=== PATIENT | female | born 1935 | race Caucasian/White ===

== ENCOUNTER 2017-08-17 11:11 | Outpatient (CLI) | payer MEDICARE | END 2017-08-17 11:12 | disposition home or self-care (01) | LOC: BICMAMMO 11:11 | PROVIDERS: ATTEND Obstetrics & Gynecology | DX: Z12.31 Encounter for screening mammogram for malignant neoplasm of breast (principal); R92.1 Mammographic calcification found on diagnostic imaging of breast; Z80.3 Family history of malignant neoplasm of breast | CPT/HCPCS: 77063; 77067 ==

== ENCOUNTER 2017-11-04 16:23 | Outpatient (CLI) | payer MEDICARE | END 2017-11-04 16:24 | disposition home or self-care (01) | LOC: BICRAD 16:23 | PROVIDERS: ATTEND Internal Medicine | DX: R06.02 Shortness of breath (principal) | CPT/HCPCS: 71046 ==

== ENCOUNTER 2018-04-13 12:28 | Observation (INO) | payer MEDICARE ==
[~2018-04-13 12:28] MED LIST: ISOVUE-370 76%-LOCM 1 ML ONE
[2018-04-13] MEDS ORDERED: Aspirin Chewable 81 MG TAB ONE (14:03)
[2018-04-13 14:33] LABS: #Eosinphils 0.1 thou/uL (0.0-0.7); #Lymphocytes 1.4 thou/uL (1.20-3.40); #Monocytes 0.5 thou/uL (0.11-0.59); #Neutrophils 4.8 thou/uL (1.40-6.50); %Basophils 0.5 % (0.0-1.0); %Eosinophils 1.4 % (0.0-10.0); %Monocytes 7.7 % (0.0-10.0); %Neutrophils 70.3 % (42.0-75.0); Hemoglobin 15.3 g/dL (12.0-16.0); Mean Corpuscular HGB CONC 32.7 g/dL (32.0-36.0); Mean Corpuscular Hemoglobin 33.7 pg (27.0-31.0); Mean Platelet Volume 6.8 fL (7.4-10.4); Platelet Count 159 thou/uL (130-400); RBC Distribution Width 11.6 % (11.5-14.5); Red Blood Cell (RBC) Count 4.53 mill/uL (4.20-5.40); White Blood Cell (WBC) Count 6.8 thou/uL (4.8-10.8)
[2018-04-13 15:23] LABS: ALT (SGPT) 26 U/L (8-55); AST (SGOT) 37 U/L (5-34); Albumin 4.5 g/dL (3.4-4.8); Alkaline Phosphatase 113 U/L (40-150); Anion Gap 17 mmol/L (10-20); BUN (Urea Nitrogen) 15 mg/dL (9.8-20.1); Bilirubin, Total 0.8 mg/dL (0.2-1.2); Calc. Creatinine Clearance 0 mL/min (70-130); Calcium 10.4 mg/dL (7.8-10.44); Carbon Dioxide 25 mmol/L (23-31); Chloride 104 mmol/L (98-107); Estimated GFR-MDRD 72; Globulin 2.8 g/dL (2.4-3.5); Glucose 111 mg/dL (83-110); Potassium 4.8 mmol/L (3.5-5.1); Protein, Total 7.3 g/dL (6.0-8.3); Sodium 141 mmol/L (136-145)
--- NOTE | 2018-04-13 16:08 | CT ---
CT ARTERIOGRAM HEAD WITH IV CONTRAST AND 3D MIP IMAGING CT BRAIN WITH AND WITHOUT IV CONTRAST: Date: 04/13/18 HISTORY: Falls. Altered mental status. COMPARISON: 03/15/15. FINDINGS: No evidence of acute intracranial hemorrhage or infarct. Projecting superiorly and medially from the intracranial apex of the left orbit is an oval, densely calcified, 1.1 cm flat lesion. Projecting sup eriorly from it is a subtle blush of density with the appearance of contrast enhancement extending to the underlying brain parenchyma. It measures 0.8 cm at its base. No other abnormal areas of intracranial contrast enhancement. No other mass effect. Ventricles are un remarkable. Calcification within the carotid siphons at the brain base. No evidence of thrombosis, em bolus, or aneurysm. [place] is intact. IMPRESSION: 1. Calcified lesion at the left frontal fossa floor has the appearance of a densely calcified mening ioma, possibly with an adjacent noncalcified extra-axial enhancing component. This is likely not the cause of the patient's current symptoms. Please consider nonemergent MRI brain, with and without Gado linium contrast, for better characterization. 2. Atherosclerosis. POS: [facility]
[2018-04-13] MEDS ORDERED: HYDROcodone/Acetaminophen 5/325 mg Tablet PO PRN (17:46)
[2018-04-13] MEDS ORDERED: Acetaminophen 325 MG TAB PO PRN (17:46)
[2018-04-13 20:55] VITALS: BMI 26.9
[2018-04-13] MEDS: Famotidine 20 MG TAB PO SCH (21:57)
--- NOTE | 2018-04-14 04:43 | HP ---
PRIMARY CARE PHYSICIAN: Cary Jara MD CHIEF COMPLAINT: Falls, increased ataxia, dysarthria. HISTORY OF PRESENT ILLNESS: Ms. Morgan is an 82-year-old female who reports to the emergency room today for increased ataxia, dysarthria that lasted several hours. reports that over last night she was sitting, bent over to grab something off the floor, fell out of the chair onto her elbow, was able to get up, went to bed. This morning, has been noticed that she was not talking as clearly as she normally does; her ataxia was also worse. 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 On exam, reports that it is better than it was this morning. CT of the brain and neck with and without contrast was performed in the emergency room with the impression of a calcified lesion of the left frontal fossa floor, has the appearance of a densely calcified meningioma, possibly with an adjacent noncalcified extra-axial enhancing component. This is likely not the cause of the patient's current symptoms. Please consider non-emergent MRI Atherosclerosis; based on symptoms and history, the patient was admitted to the stroke unit for further management. 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 PAST SURGICAL HISTORY: Includes hysterectomy. PSYCHIATRIC HISTORY: None. SOCIAL HISTORY: Denies alcohol or drug history. Denies smoking history. Lives at home with her family. FAMILY HISTORY: Noncontributory. REVIEW OF SYSTEMS: CONSTITUTIONAL: Denies chills or fever. Reported some increased weakness this morning, increased ataxia which was transient. EYES: Denies any eye pain, any vision changes. ENT: Denies any rhinorrhea or sore throat. CARDIOVASCULAR: Denies any chest pain or palpitations. RESPIRATORY: Denies any shortness of breath or cough. GASTROINTESTINAL: Denies any abdominal pain, nausea, vomiting, diarrhea, constipation. GENITOURINARY: Denies any dysuria or hematuria. MUSCULOSKELETAL: Reports fall. Denies injury. Denies back pain. SKIN: Denies rashes or skin changes. NEUROLOGIC: Some slurred speech, increased ataxia, some dysarthria, which have resolved. Denies paresthesias. Denies headache. Denies paralysis. PHYSICAL EXAMINATION: VITAL SIGNS: Blood pressure 157/89, pulse is 82, respirations 18, temperature 98.7, O2 sats are 95% on room air. CONSTITUTIONAL: The patient appears pain-free, nontoxic, is oriented to person, place, and time. HEENT: Head is atraumatic and normocephalic. Eyes, pupils are equally round and reactive to light. Eyelids are normal to inspection. ENT; pharynx exam is normal. Mouth exam is normal. Trachea is midline. NECK: Normal range of motion. No tenderness. RESPIRATORY: Chest; breath sounds are clear. No findings of respiratory distress. CARDIOVASCULAR: Irregularly irregular. No abnormal heart sounds are heard. BACK: Normal inspection. Normal range of motion. EXTREMITIES: Upper extremities; normal range of motion. Does have some range of motion issue with the right shoulder, which she reports is chronic. Sensation is intact. Radial pulses are equal bilaterally. Lower extremity; normal range of motion. Motor strength is normal. Sensation intact. Pedal pulses are normal bilaterally. NEUROLOGIC: NIH is zero. The patient is alert and oriented to person, place, and time. No focal motor or sensory deficits are noted. SKIN: Warm, dry, normal in color. IMAGING DATA: EKG in the emergency room shows atrial fibrillation with controlled ventricular response. Nonspecific abnormality with ST, nonspecific T-wave changes. PERTINENT LABORATORY DATA: White blood cell count is 6.8, hemoglobin 15.3, hematocrit 46.6, platelet count is 159. Sodium 141, potassium 4.8, chloride 104, gap is 17, BUN is 15, creatinine is 0.77, estimated GFR 72, glucose 111, calcium 10.4, AST is 37, ALT 26. First troponin 0.010. Other liver enzymes are unremarkable. ASSESSMENT AND PLAN: 1. Increased dysarthria and ataxia, which have resolved, likely possible transient ischemic attack. We will obtain an MRI in the morning, echocardiogram. We will ask the stroke team to evaluate. 2. Hyperlipidemia. We will draw lipids in the morning. Continue home medications. 3. Hypertension. We will monitor vital signs. Restart home medications. 4. Hospital course will be dependent on clinical findings. Job ID: [id number]
[2018-04-14 05:12] LABS: #Eosinphils 0.1 thou/uL (0.0-0.7); #Lymphocytes 1.7 thou/uL (1.20-3.40); #Monocytes 0.5 thou/uL (0.11-0.59); #Neutrophils 2.4 thou/uL (1.40-6.50); %Lymphocytes 34.9 % (21.0-51.0); %Monocytes 11.1 % (0.0-10.0); Hemoglobin 14.4 g/dL (12.0-16.0); Mean Corpuscular HGB CONC 33.2 g/dL (32.0-36.0); Mean Platelet Volume 6.6 fL (7.4-10.4); Platelet Count 147 thou/uL (130-400); RBC Distribution Width 11.6 % (11.5-14.5); Red Blood Cell (RBC) Count 4.24 mill/uL (4.20-5.40); White Blood Cell (WBC) Count 4.9 thou/uL (4.8-10.8)
[2018-04-14 05:15] LABS: INR-International Normal Ratio 1.1; PTT 29.3 SEC (22.9-36.1); Prothrombin Time 13.8 SEC (12.0-14.7)
[2018-04-14 06:00] LABS: ALT (SGPT) 19 U/L (8-55); AST (SGOT) 21 U/L (5-34); Alkaline Phosphatase 91 U/L (40-150); Anion Gap 14 mmol/L (10-20); BUN (Urea Nitrogen) 13 mg/dL (9.8-20.1); Calc. Creatinine Clearance 67 mL/min (70-130); Calcium 10.2 mg/dL (7.8-10.44); Carbon Dioxide 24 mmol/L (23-31); Cardiac Risk 2.5 (Less than 4.5); Chloride 105 mmol/L (98-107); Cholesterol 157 mg/dl (< 200 Desired); Estimated GFR-MDRD 77; Globulin 2.5 g/dL (2.4-3.5); Glucose 100 mg/dL (83-110); HDL Cholesterol 63 mg/dL (>60 Neg Risk); LDL Cholesterol, Calculated 76 mg/dL; Potassium 3.5 mmol/L (3.5-5.1); Protein, Total 6.5 g/dL (6.0-8.3); Sodium 139 mmol/L (136-145); Triglycerides 88 mg/dL (Less than 150)
[2018-04-14] MEDS ORDERED: Ondansetron ODT 4 MG TAB PO PRN (07:30)
[2018-04-14] MEDS ORDERED: Loperamide HCl 2 MG CAP PO PRN (07:30)
[2018-04-14] MEDS ORDERED: Cepastat Lozenges 1 LOZ PO PRN (07:30)
[2018-04-14] MEDS ORDERED: Loratadine 10 MG TAB PO PRN (07:30)
[2018-04-14] MEDS ORDERED: Zolpidem Tartrate 5 MG TAB PO PRN (07:30)
[2018-04-14] MEDS ORDERED: Acetaminophen 500 MG TAB PO PRN (07:30)
[2018-04-14] MEDS ORDERED: Ondansetron PF 4 MG/2 ML Vial IVP PRN (07:30)
[2018-04-14] MEDS ORDERED: Eucerin (Mineral Oil/Petrolatum,White) 30 gm Jar TOP PRN (07:30)
[2018-04-14] MEDS ORDERED: Artificial Tears 18 DROP/0.9 ML EA EYE PRN (07:30)
[2018-04-14] MEDS ORDERED: Sodium Chloride 0.65% Nasal 44 ML BOT EA NARE PRN (07:30)
[2018-04-14] MEDS ORDERED: Calcium Carbonate 500 MG ChewTAB PO PRN (07:30)
[2018-04-14] MEDS ORDERED: Bisacodyl 10 MG SUPP PR PRN (07:30)
[2018-04-14] MEDS ORDERED: Senokot S 8.6-50 MG TAB PO PRN (07:30)
[2018-04-14] MEDS ORDERED: Diabetic Tussin 200 MG/10 ML UDCUP PO PRN (07:30)
[2018-04-14] MEDS ORDERED: hydrALAZINE 20 MG/ML VIAL SLOW IVP PRN (07:30)
[2018-04-14] MEDS ORDERED: Lorazepam 2 MG/ML VIAL SLOW IVP SCH (08:15)
[2018-04-14] MEDS: Famotidine 20 MG TAB PO SCH (08:57)
[2018-04-14] MEDS ORDERED: Mupirocin 2% Ointment 22 GM Tube TOP SCH ×2 (09:00)
[2018-04-14] MEDS ORDERED: Simvastatin 20 MG TAB PO SCH (09:00)
--- NOTE | 2018-04-14 09:50 | MRI ---
MRI BRAIN WITHOUT CONTRAST: HISTORY: Altered mental status. FINDINGS: Correlation is made with the CT scan and CTA of previous day. There are small foci of restricted diffusion in the right parietal and temporal lobes consistent with acute infarctions. Multiple foci of T2 prolongation in the periventricular white matter are consist ent with chronic small vessel ischemic disease. No hemorrhage, midline shift, or abnormal extraaxial fluid collections are seen. A 1 cm extradural mass in the left inferior frontal region is likely a meningioma (noted on yesterday's study). IMPRESSION: 1. Small acute lacunar infarctions in the right cerebral hemisphere. 2. Probable meningioma. Exam should be repeated with IV Gadolinium. POS: [facility]
--- NOTE | 2018-04-14 11:58 | PDOC.PN ---
- Subjective Encounter Start Date: 04/14/18 Encounter Start Time: 07:40 -: old records requested/rev Patient seen and examined. No new complaints. No overnight events - Objective Resuscitation Status - Order Detail: 04/13/18 17:46 Resuscitation Status Routine Co-Sign Provider: Resuscitation Status: FULL: Full Resuscitation MAR Reviewed: Yes Vital Signs & Weight: Vital Signs (12 hours) Temp Pulse Resp BP Pulse Ox 04/14/18 11:41 97.4 F L 80 16 115/64 95 04/14/18 07:46 98.1 F 88 16 163/83 H 97 04/14/18 04:00 97.9 F 77 18 128/69 95 04/14/18 00:00 98.1 F 73 18 157/86 H 95 Weight Weight 157 lb I&O: 04/13/18 04/14/18 04/15/18 06:59 06:59 06:59 Intake Total 100 Balance 100 Result Diagrams: 04/14/18 04:53 04/14/18 04:53 Radiology Reviewed by me: Yes (MRI showed lacunar cva) EKG Reviewed by me: Yes (nsr) Phys Exam - Physical Examination Constitutional: NAD HEENT: PERRLA, moist MMs, sclera anicteric Neck: no JVD, supple Respiratory: no wheezing, no rales, no rhonchi Cardiovascular: RRR, no significant murmur, no rub Gastrointestinal: soft, non-tender, no distention, positive bowel sounds Musculoskeletal: no edema, pulses present Neurological: non-focal, normal sensation, moves all 4 limbs Lymphatic: no nodes Psychiatric: normal affect, A&O x 3 Skin: no rash, normal turgor Dx/Plan (1) Ataxia Code(s): R27.0 - ATAXIA, UNSPECIFIED Status: Acute (2) Dyslipidemia Code(s): E78.5 - HYPERLIPIDEMIA, UNSPECIFIED Status: Chronic (3) Hypertension Code(s): I10 - ESSENTIAL (PRIMARY) HYPERTENSION Status: Chronic (4) Macrocytosis Code(s): D75.89 - OTHER SPECIFIED DISEASES OF BLOOD AND BLOOD-FORMING ORGANS Status: Chronic - Plan cont current plan of care * medication reviewed as below * symptomatic treatment * echo pending * neuro consult * will discharge later today * discussed with . Review of Systems - Review of Systems ENT: negative: Ear Pain, Ear Discharge, Nose Pain, Nose Discharge, Nose Congestion, Mouth Pain, Mouth Swelling, Throat Pain, Throat Swelling, Other Respiratory: negative: Cough, Dry, Shortness of Breath, Hemoptysis, SOB with Excertion, Pleuritic Pain, Sputum, Wheezing Cardiovascular: negative: chest pain, palpitations, orthopnea, paroxysmal nocturnal dyspnea, edema, light headedness, other Gastrointestinal: negative: Nausea, Vomiting, Abdominal Pain, Diarrhea, Constipation, Melena, Hematochezia, Other Genitourinary: negative: Dysuria, Frequency, Incontinence, Hematuria, Retention , Other Musculoskeletal: negative: Neck Pain, Shoulder Pain, Arm Pain, Back Pain, Hand Pain, Leg Pain, Foot Pain, Other Skin: negative: Rash, Lesions, Petey, Bruising, Other - Medications/Allergies Allergies/Adverse Reactions: Allergies Allergy/AdvReac Type Severity Reaction Status Date / Time No Known Drug Allergies Allergy Verified 04/13/18 21:08 Medications: Current Medications Acetaminophen (Tylenol) 1,000 mg PO Q6H PRN PRN Reason: Mild Pain (1-3) Hydrocodone Bitart/Acetaminophen ([place] 5/325) 1 tab PO Q4H PRN PRN Reason: Moderate Pain (4-6) Artificial Tears (Tears Naturale) 2 drop EA EYE PRN PRN PRN Reason: Dry Eyes Atorvastatin Calcium (Lipitor) 10 mg PO [facility] Bisacodyl (Dulcolax) 10 mg ID DAILYPRN PRN PRN Reason: Constipation Calcium Carbonate (Tums) 1,000 mg PO Q4H PRN PRN Reason: Heartburn or Indigestion Famotidine (Pepcid) 20 mg PO BID [facility] Last Admin: 04/14/18 08:57 Dose: Not Given Guaifenesin (Robitussin Sf) 200 mg PO Q4H PRN PRN Reason: Cough Hydralazine HCl (Apresoline) 10 mg SLOW IVP Q4H PRN PRN Reason: SBP > 180 and HR < 70 Loperamide HCl (Imodium) 2 mg PO PRN PRN PRN Reason: Diarrhea/Loose Stools Loratadine (Claritin) 10 mg PO DAILYPRN PRN PRN Reason: Sinus Symptoms Lorazepam (Ativan) 1 mg SLOW IVP ASDIR [facility] Last Admin: 04/14/18 08:55 Dose: 1 mg Metoprolol Succinate (Toprol Xl) 25 mg PO BID [facility] Last Admin: 04/14/18 08:56 Dose: 25 mg Mineral Oil/White Petrolatum (Eucerin Cream) 0 gm TOP BIDPRN PRN PRN Reason: Dry Skin Mupirocin (Bactroban 2% Ointment) 0 gm TOP BID [facility] Ondansetron HCl (Zofran Odt) 4 mg PO Q6H PRN PRN Reason: Nausea/Vomiting Ondansetron HCl (Zofran) 4 mg IVP Q6H PRN PRN Reason: Nausea/Vomiting Senna/Docusate Sodium (Senokot S) 2 tab PO BID PRN PRN Reason: Constipation Sodium Chloride (Flush - Normal Saline) 10 ml IVF Q12HR PRN PRN Reason: Saline Flush Sodium Chloride (Flush - Normal Saline) 10 ml IVF PRN PRN PRN Reason: Saline Flush Sodium Chloride ([place] Nasal [place] 0.65%) 0 ml EA NARE QIDPRN PRN PRN Reason: Nasal Congestion Throat Lozenges (Cepastat Lozenges) 1 alexandro PO Q2H PRN PRN Reason: Sore Throat Zolpidem Tartrate (Ambien) 5 mg PO HSPRN PRN PRN Reason: Insomnia
[2018-04-14] MEDS ORDERED: Aspirin 325 MG TAB PO SCH (12:45)
--- NOTE | 2018-04-14 13:02 | DIS ---
DATE OF ADMISSION: 04/13/2018 DATE OF DISCHARGE: 04/14/2018 PRIMARY CARE PHYSICIAN: Dr. Cary Jara. DISCHARGE DISPOSITION: Home with home health. PRIMARY DISCHARGE DIAGNOSES: 1. Acute lacunar infarction in the right cerebral hemisphere. 2. Ataxia due to problem #1, resolved. SECONDARY DISCHARGE DIAGNOSES: Chronic calcified meningioma, history of herpes encephalitis, hypertension, dyslipidemia. PRIMARY PROCEDURE/OPERATION: None. RADIOLOGICAL INVESTIGATIONS: 1. CT [place], negative for any acute process. 2. MRI brain did show acute lacunar infarct in cerebral hemisphere. SIGNIFICANT LABORATORY DATA: WBC 4.9, hemoglobin 14.4, MCV 102, platelet 147. INR 1.1. Sodium 139, creatinine 0.72. Electrolytes are normal. LFT normal. LDL 76. TSH 1.75. Cardiac enzyme negative. DISCHARGE MEDICATIONS: 1. Aspirin 325 mg p.o. daily. 2. Metoprolol 25 mg p.o. b.i.d. 3. Zocor 20 mg p.o. at bedtime. 4. Mupirocin topical application b.i.d. CONTRAINDICATION: None. CODE STATUS: Full code. INPATIENT FRUIT GRADER OPERATOR: Dr. Brooks Bar is consulted. TEST RESULTS PENDING ON DISCHARGE: Echocardiography. DISCHARGE PLAN: Posthospital, the patient is instructed to follow up with Neurology, primary care physician, as well as Cardiology. HOSPITAL COURSE: An 82-year-old female, who was admitted by Pau Jimenes. Please see her H and P for further detail. The patient was having ataxia and dizziness. She was feeling uncoordination. She was also having dysarthria. She had episode of fall at home. Stroke alert was initiated in the emergency room. CT [place] was negative for any acute process. It did show old calcified meningioma, which per the patient has old finding. She was admitted to Stroke Floor. We did MRI brain, which confirmed lacunar infarct in the right cerebral hemisphere. PT/OT was initiated. Neurology was consulted. On discharge, we arranged home health for PT, OT, and shelter. The patient will continue all her previous medication. Aspirin is added on her regimen. She will follow up with primary care physician, Cardiology, and Neurology as instructed. All test results were discussed with the patient's family member. The patient is seen and examined at bedside today. The patient's family member wants to take her home later on today after Neurology evaluation. Job ID: [id number]
[2018-04-14] MEDS ORDERED: Oxymetazoline HCl 0.05% ( 15 ML ) ONE (15:36)
[2018-04-14 15:56] VITALS: BP 120/72; TEMP 97.2
--- NOTE | 2018-04-14 17:33 | CON ---
DATE OF CONSULTATION: 04/14/2018 NEUROLOGIC CONSULTATION CONSULTING PHYSICIAN: Hospitalist Service. IMPRESSION: 1. Lacunar stroke in the right hemisphere resulting in some transient left-sided weakness. 2. Atrial fibrillation. 3. Anticoagulation is not an option for her. 4. Hyperlipidemia. PLAN: 1. Continue aspirin. 2. Add Plavix. 3. Continue Lipitor. 4. Follow up with her coin machine servicer repairer for echocardiogram and carotid Doppler next month. HISTORY OF PRESENT ILLNESS: Ms. Morgan is an 82-year-old woman, who was trying to get up from a chair and fell. When her helped her up, he realized she was dragging her left leg. He also noted that she was slurring her speech. She came into the emergency room for evaluation. MRI of the brain subsequently revealed lacunar infarction in the right cerebral hemisphere. Her CT angiogram of [place] was unremarkable. However, lab work was normal. Cholesterol ratio was 2.5. She was on aspirin prior to this. She had been on anticoagulation in the past and had a major hemorrhage. PAST MEDICAL HISTORY: As listed above. ALLERGIES: NONE. SOCIAL HISTORY: with no tobacco or alcohol use. FAMILY HISTORY: Noncontributory. REVIEW OF SYSTEMS: A 10-system review of systems was carried out and was unremarkable other than shortness. PHYSICAL EXAMINATION: GENERAL: She is a healthy-appearing elderly lady, in no acute distress. VITAL SIGNS: Blood pressure 157/89, pulse 82, respirations 18, and temperature 98.7. HEENT: Pupils are equal and reactive. Conjunctivae clear. Oropharynx clear. NECK: Supple. No lymphadenopathy. EXTREMITIES: She has ecchymosis of the left elbow, but otherwise no swelling or cyanosis is present. NEUROLOGIC: She is alert and appropriate. Her speech is fluent and clear. Exam is nonfocal. Her gait is steady. SUMMARY: Elderly lady with history of atrial fib, but intolerance to anticoagulants. She presents with lacunar infarction secondary to small vessel ischemic disease. I would agree with advancing her antiplatelet therapy and have her follow up with her coin machine servicer repairer. Job ID: [id number]
[2018-04-14] MEDS ORDERED: Clopidogrel Bisulfate 75 MG TAB PO SCH (18:15)
[2018-04-14] MEDS ORDERED: Atorvastatin Calcium 10 MG TAB PO SCH (21:00)
--- NOTE | 2018-04-16 20:54 | EKG ---
Test Reason : FALL Blood Pressure : / mmHG Vent. Rate : 089 BPM Atrial Rate : 468 BPM P-R Int : 000 ms QRS Dur : 072 ms QT Int : 338 ms P-R-T Axes : 000 014 075 degrees QTc Int : 411 ms Atrial fibrillation Septal infarct , age undetermined Abnormal ECG Confirmed by LILY MOMIN, VITA Gutierres ([id number]), video news editor BRISA CASTRO ([id number]) on 04/16/2018 8:54:48 PM Referred By: Confirmed By:VITA BAUTISTA MD
== END 2018-04-14 19:40 | disposition home health service (06) ==
LOC: ERS 12:28 → ERHOLD 16:27 → INTOOBSV 16:27 → 2SE 19:53
PROVIDERS: ADMIT Emergency Medicine; ATTEND Emergency Medicine
DX: I63.81 Other cerebral infarction due to occlusion or stenosis of small artery (principal); R27.0 Ataxia, unspecified; R47.1 Dysarthria and anarthria; I48.91 Unspecified atrial fibrillation; I10 Essential (primary) hypertension; E78.5 Hyperlipidemia, unspecified; D32.0 Benign neoplasm of cerebral meninges; I70.90 Unspecified atherosclerosis; D75.89 Other specified diseases of blood and blood-forming organs; Z79.82 Long term (current) use of aspirin; Z79.899 Other long term (current) drug therapy; W07.XXXA Fall from chair, initial encounter
CPT/HCPCS: 70496; 70551; 80053; 80061; 84484; 85025; 85610; 85730; 93005; 96374; 97116; 97139 ×2; 97535; 99285; G0378 ×2; 36415; 84443; J2060; Q9966

== ENCOUNTER 2018-04-19 10:24 | Outpatient (CLI) | payer MEDICARE ==
--- NOTE | 2018-04-19 16:43 | BD ---
BONE DENSITOMETRY USING DEXA: HISTORY: Postmenopausal screening for osteoporosis. LUMBAR SPINE BMD (g/cm2) T-SCORE Z-SCORE L1 0.992 0.0 2.5 L2 1.012 -0.1 2.6 L3 1.144 0.5 3.5 L4 1.172 1.0 4.0 TOTAL 1.093 0.4 3.2 NECK 0.693 -1.4 1.1 TOTAL 0.916 -0.2 2.1 The 10-year fracture risk for a major osteoporotic fracture is 13% and for a hip fracture 3.4%. IMPRESSION: Osteopenia. POS: [facility]
== END 2018-04-19 10:25 | disposition home or self-care (01) ==
LOC: BICMAMMO 10:24
PROVIDERS: ATTEND Internal Medicine
DX: Z78.0 Asymptomatic menopausal state (principal); M85.88 Other specified disorders of bone density and structure, other site
CPT/HCPCS: 77080

== ENCOUNTER 2019-09-06 10:35 | Outpatient (CLI) | payer MEDICARE ==
--- NOTE | 2019-09-06 12:22 | MMO ---
Bilateral MAMMO Bilat Screen DDI+ABDIEL. CLINICAL HISTORY: Patient is 84 years old and is seen for screening. The patient has no personal history of cancer. VIEWS: The views performed were: bilateral craniocaudal with tomosynthesis and bilateral mediolateral oblique with tomosynthesis. FILMS COMPARED: The present examination has been compared to prior imaging studies performed at [facility] on 11/07/2014, 02/05/2016 and 08/17/2017, and at [facility] on 08/01/2012. This study has been interpreted with the assistance of computer-aided detection. MAMMOGRAM FINDINGS: There are scattered fibroglandular densities. Benign calcifications are noted bilaterally. There are no suspicious masses, suspicious calcifications, or new areas of architectural distortion. IMPRESSION: THERE IS NO MAMMOGRAPHIC EVIDENCE OF MALIGNANCY. A ROUTINE FOLLOW-UP MAMMOGRAM IN 1 YEAR IS RECOMMENDED. THE RESULTS OF THIS EXAM WERE SENT TO THE PATIENT. ACR BI-RADS Category 2 - Benign finding MAMMOGRAPHY NOTE: 1. A negative mammogram report should not delay a biopsy if a dominant of clinically suspicious mass is present. 2. Approximately 10% to 15% of breast cancers are not detected by mammography. 3. Adenosis and dense breasts may obscure an underlying neoplasm. Reported by: ISAAK EDMONDS MD Electonically Signed: [id number]
== END 2019-09-06 10:36 | disposition home or self-care (01) ==
LOC: BICMAMMO 10:35
PROVIDERS: ATTEND Internal Medicine
DX: Z12.31 Encounter for screening mammogram for malignant neoplasm of breast (principal)
CPT/HCPCS: 77063; 77067

== ENCOUNTER 2020-10-09 14:13 | Outpatient (CLI) | payer MEDICARE | END 2020-10-09 14:14 | disposition home or self-care (01) | LOC: BICMAMMO 14:13 | PROVIDERS: ATTEND Internal Medicine | DX: N63.10 Unspecified lump in the right breast, unspecified quadrant (principal) | CPT/HCPCS: 77065; G0279 ==

== ENCOUNTER 2021-09-23 15:00 | Emergency (ER) | payer MEDICARE ==
[2021-09-23 16:21] LABS: Bacteria/HPF 2+ HPF (None Seen); Bilirubin Negative (Negative); Blood, Urine 1+ (Negative); Clarity Cloudy (Clear); Glucose, Urine (Dipstick) Normal (Negative); Ketone, Urine Negative (Negative); Leukocyte 500 Leu/uL (Negative); Nitrite 1+ (Negative); Protein, Urine (Dipstick) 20 mg/dL (Neg-Trace); Specific Gravity, Urine 1.011 (1.002-1.036); Squamous Epithelial 0-3 HPF (0-3); Urobilinogen Normal mg/dL (Less than 2); WBC/HPF Greater than 50 HPF (0-3); pH, Urine 7.5 (5.0-9.0)
== END 2021-09-23 16:45 | disposition home or self-care (01) ==
LOC: ERS 15:00
DX: N39.0 Urinary tract infection, site not specified (principal); I10 Essential (primary) hypertension; E78.5 Hyperlipidemia, unspecified
CPT/HCPCS: 81003; 81015; 87077; 87086; 87186; 99283

== ENCOUNTER 2021-10-14 12:42 | Outpatient (CLI) | payer MEDICARE | END 2021-10-14 12:43 | disposition home or self-care (01) | LOC: BICULT 12:42 | PROVIDERS: ATTEND Internal Medicine | DX: N39.0 Urinary tract infection, site not specified (principal) | CPT/HCPCS: 76770 ==

== ENCOUNTER 2021-10-16 14:01 | Outpatient (CLI) | payer MEDICARE | END 2021-10-16 14:02 | disposition home or self-care (01) | LOC: BICMAMMO 14:01 | PROVIDERS: ATTEND Internal Medicine | DX: Z12.31 Encounter for screening mammogram for malignant neoplasm of breast (principal) | CPT/HCPCS: 77063; 77067 ==

== ENCOUNTER 2022-10-26 11:06 | Outpatient (CLI) | payer MEDICARE ==
[~2022-10-26 11:06] MED LIST changes: -ISOVUE-370 76%-LOCM 1 ML ONE; +Iopamidol-370 76% 500 ML MDV (1 ML CHARGE) ONE
== END 2022-10-26 11:07 | disposition home or self-care (01) ==
LOC: BICCT 11:06
PROVIDERS: ATTEND Internal Medicine Cardiovascular Disease
DX: I83.893 Varicose veins of bilateral lower extremities with other complications (principal); I87.1 Compression of vein
CPT/HCPCS: 74177; 82565; Q9967

== ENCOUNTER 2022-11-25 10:02 | Outpatient (CLI) | payer MEDICARE | END 2022-11-25 10:03 | disposition home or self-care (01) | LOC: BICMAMMO 10:02 | PROVIDERS: ATTEND Internal Medicine | DX: Z12.31 Encounter for screening mammogram for malignant neoplasm of breast (principal); Z13.820 Encounter for screening for osteoporosis; M85.851 Other specified disorders of bone density and structure, right thigh; M85.852 Other specified disorders of bone density and structure, left thigh; Z78.0 Asymptomatic menopausal state; Z80.3 Family history of malignant neoplasm of breast | CPT/HCPCS: 77063; 77067; 77080 ==